=== PATIENT | male | born 2000 | race Native Hawaiian/Other Pacific Islander ===

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

== ENCOUNTER 2019-06-24 01:50 | Emergency (ER) | payer OTHER ==
[~2019-06-24] VITALS: Ht 188 cm; Wt 97.5 kg
[2019-06-24 02:44] LABS: PLATELET COUNT 217 K/uL (142-355)
[2019-06-24 03:10] LABS: POTASSIUM 3.4 mmol/L (3.6-5.2)
[2019-06-24 03:35] VITALS: BP 124/87; TEMP 97.9
== END 2019-06-24 03:35 | disposition home or self-care (01) ==
LOC: ED 01:50
PROVIDERS: Emergency Medicine
DX: F41.8 Other specified anxiety disorders (principal); R06.02 Shortness of breath
CPT/HCPCS: 80053; 80307; 83735; 84484; 85027; 85379; 93005; 99283

== ENCOUNTER 2019-09-30 08:05 | Emergency (ER) | payer OTHER ==
[~2019-09-30] VITALS: Ht 180.3 cm; Wt 99.8 kg
[2019-09-30 08:16] VITALS: TEMP 97.5
[2019-09-30 09:04] LABS: PLATELET COUNT 224 K/uL (142-355)
[2019-09-30 09:19] LABS: POTASSIUM 3.7 mmol/L (3.6-5.2)
[2019-09-30 11:55] VITALS: BP 123/73
== END 2019-09-30 12:15 | disposition home or self-care (01) ==
LOC: ED 08:05
PROVIDERS: Family Medicine
DX: N39.0 Urinary tract infection, site not specified (principal); K57.90 Diverticulosis of intestine, part unspecified, without perforation or abscess without bleeding
CPT/HCPCS: 36415; 80053; 81000; 85027; 87088; 99283; Q9963